=== PATIENT | female | born 1985 | race Caucasian/White ===

== ENCOUNTER 2021-12-19 13:16 | Emergency (ER) | payer OTHER ==
[2021-12-19 13:39] LABS: BASOPHIL 0.5 % (0-2); EOSINOPHIL 2.1 % (0-5); HCT 33.5 % (37.0-47.0); HGB 11.3 g/dl (12.5-16.0); LYMPHOCYTE 17.9 % (15-48); MCH 27.2 pg (25.0-31.0); MCHC 33.7 g/dL (32.0-36.0); MCV 80.5 fL (78.0-100.0); MONOCYTE 7.8 % (0-12); MPV 9.2 fL (6.0-9.5); NRBC 0; PLT 304 K/uL (150-400); RBC 4.16 M/uL (4.20-5.40); RDW 15.2 % (11.5-14.0); WBC 12.1 K/uL (4.0-10.5)
[2021-12-19 13:58] LABS: ALBUMIN 3.8 g/dL (3.4-5.0); BILIRUBIN - TOTAL 0.7 mg/dL (0.2-1.0); BUN/CREAT RATIO (CALC) 27.1 RATIO; CREATININE 0.7 mg/dL (0.51-0.95); GLOBULIN (CALCULATION) 3.9 g/dL; POTASSIUM 3.8 mmol/L (3.5-5.1); TOTAL PROTEIN 7.7 g/dL (6.4-8.2)
[2021-12-19 13:59] LABS: LACTIC ACID 0.8 mmol/L (0.4-1.9)
[2021-12-19 14:30] LABS: AMPHETAMINES POSITIVE (NEGATIVE); BARBITURATES NEGATIVE (NEGATIVE); ECSTASY (MDMA) POSITIVE (NEGATIVE); MARIJUANA (THC) POSITIVE (NEGATIVE); METHADONE NEGATIVE (NEGATIVE); OPIATES NEGATIVE (NEGATIVE); OXYCODONE NEGATIVE (NEGATIVE)
[2021-12-19] MEDS ORDERED: CLEOCIN300 MG PO (15:38)
== END 2021-12-19 16:09 | disposition home or self-care (01) ==
LOC: FER 13:16
PROVIDERS: Emergency Medicine
DX: L03.115 Cellulitis of right lower limb (principal); L03.116 Cellulitis of left lower limb; R74.8 Abnormal levels of other serum enzymes; F15.10 Other stimulant abuse, uncomplicated; G40.909 Epilepsy, unspecified, not intractable, without status epilepticus; E66.9 Obesity, unspecified; Z79.899 Other long term (current) drug therapy; Z88.8 Allergy status to other drugs, medicaments and biological substances; Z28.310 Unvaccinated for COVID-19
CPT/HCPCS: 36415; 71045; 80053; 80305; 83605; 83880; 84145; 85025; 93005; 93970; J1940